=== PATIENT | male | born 1995 | race Caucasian/White ===

== ENCOUNTER 2018-04-30 09:05 | Emergency (ER) | payer MEDICAID ==
[~2018-04-30] VITALS: Ht 182.9 cm; Wt 74.8 kg
[2018-04-30 09:16] VITALS: BP 157/75
== END 2018-04-30 10:22 | disposition home or self-care (01) ==
LOC: ED 10:16
DX: S50.12XA Contusion of left forearm, initial encounter (principal); F17.200 Nicotine dependence, unspecified, uncomplicated; W20.8XXA Other cause of strike by thrown, projected or falling object, initial encounter; Y93.89 Activity, other specified; Y92.69 Other specified industrial and construction area as the place of occurrence of the external cause; Y99.9 Unspecified external cause status
CPT/HCPCS: 99284